=== PATIENT | female | born 1940 | race Caucasian/White ===

== ENCOUNTER → 2017-02-07 11:20 | Outpatient (CLI) | payer MEDICARE, BC ==
[~2017-02-07 11:20] MED LIST: ASPIRIN325 MG; ATIVAN0.5 MG; BAYER CHEWABLE81 MG PO; CALCIUM 500 + D1 TAB PO; FOLATE0.4 MG PO; FOSAMAX PLUS D1 TA1; GLUCOPHAGE500 MG PO; GLUCOSAMINE & C1 CAP PO; HYDROCODONE-APA1 TAB PO; RESTORIL7.5 MG; TRICOR145 MG PO; VITAMIN D2000 UNIT; VITAMIN E400 UNI2 PO; ZOLOFT25 MG PO
== END | disposition home or self-care (01) ==
LOC: D.RAD 11:20
DX: R05 Cough (principal)